=== PATIENT | male | born 1975 | race Caucasian/White ===

== ENCOUNTER 2016-11-06 22:04 | Emergency (ER) | payer OTHER ==
[~2016-11-06] VITALS: Ht 170.2 cm; Wt 135.0 kg
[~2016-11-06 22:04] MED LIST: HYDR25TA PO; LISI-660 PO; [UNRECOGNIZED DRUG - REMARK]; [UNRECOGNIZED DRUG - REMARK]
[2016-11-06 22:21] LABS: GLUCOSE,POINT OF CARE 542 MG/DL (70-110)
[2016-11-06 22:29] LABS: BASOPHILS % (AUTO) 1.2 % (0.0-2.0); EOSINOPHILS % (AUTO) 1.2 % (1.0-6.0); HEMATOCRIT 45.6 % (41-53); HEMOGLOBIN 15.4 g/dL (13.5-17.5); LYMPHOCYTES % (AUTO) 38.3 % (22.0-44.0); MEAN CORPUSCULAR HGB CONC 33.8 G/dL (31.0-37.0); MEAN CORPUSCULAR VOLUME 86 fL (80-100); MONOCYTES # (AUTO) 0.3 K/uL (0.1-1.0); MONOCYTES % (AUTO) 6.8 % (2.0-9.0); NEUTROPHILS # (AUTO) 2.7 K/uL (1.8-7.7); NEUTROPHILS % (AUTO) 52.5 % (40.0-70.0); PLATELET COUNT (AUTO) 202 K/uL (150-450); RED BLOOD CELL COUNT(AUTO) 5.31 MIL/uL (4.50-5.90); WHITE BLOOD COUNT (AUTO) 5.1 K/uL (4.5-11.0)
[2016-11-06 22:52] LABS: ALANINE AMINOTRANSFERASE 89 U/L (12-78); ALBUMIN 3.5 g/dL (3.4-5.0); ANION GAP 5 mmol/L (8-16); ASPARTATE AMINOTRANSFERASE 41 U/L (15-37); BILIRUBIN,TOTAL 0.7 mg/dL (0.1-1.0); CALCIUM, TOTAL 8.8 mg/dL (8.8-10.5); CARBON DIOXIDE 29 mmol/L (22-29); CHLORIDE 91 mmol/L (98-107); CREATININE 1.13 mg/dL (0.60-1.30); GLOMERULAR FILTR. RATE CALC > 60 mL/min (>60); POTASSIUM 4.5 mmol/L (3.5-5.1); SODIUM SERUM 125 mmol/L (136-145); UREA NITROGEN, BLOOD 17 mg/dL (7-18)
[2016-11-06] MEDS ORDERED: SODIUM CHLORIDE 0.9% 1,000 ML IV ONE ×2 (23:00→23:15)
[2016-11-06] MEDS ORDERED: INSULIN REGULAR, HUMAN 100 UNITS/ML IVP ONE (23:00)
[2016-11-06 23:20] LABS: APPEARANCE,URINE CLEAR (CLEAR); GLUCOSE, URINE (UA) >=1000 mg/dL (NEGATIVE); KETONES,URINE NEGATIVE (NEGATIVE); LEUKOCYTE ESTERASE ,URINE NEGATIVE (NEGATIVE); OCCULT BLOOD,URINE TRACE (NEGATIVE); PROTEIN,URINE NEGATIVE (NEGATIVE)
[2016-11-06] MEDS ORDERED: DONNATAL/LIDOCAINE/MAALOX 55 ML BOTTLE PO ONE (23:30)
[2016-11-06 23:37] LABS: ADD UA MICROSCOPIC YES
[2016-11-07 00:11] LABS: GLUCOSE,POINT OF CARE 381 MG/DL (70-110)
[2016-11-07 00:52] LABS: GLUCOSE COMMENT 1 Doctor Notified; GLUCOSE,POINT OF CARE 343 MG/DL (70-110)
[2016-11-07] MEDS ORDERED: SODIUM CHLORIDE 0.9% 1,000 ML IV ONE (01:00)
[2016-11-07] MEDS ORDERED: INSULIN REGULAR, HUMAN 100 UNITS/ML IVP ONE (01:15)
[2016-11-07 01:36] LABS: GLUCOSE COMMENT 1 Doctor Notified; GLUCOSE,POINT OF CARE 316 MG/DL (70-110)
[2016-11-07 03:16] LABS: GLUCOSE COMMENT 1 Doctor Notified; GLUCOSE,POINT OF CARE 306 MG/DL (70-110)
[2016-11-07 04:20] VITALS: BP 133/80
== END 2016-11-07 04:20 | disposition home or self-care (01) ==
LOC: EMS 22:05
DX: R73.9 Hyperglycemia, unspecified (principal); I10 Essential (primary) hypertension; E78.00 Pure hypercholesterolemia, unspecified
CPT/HCPCS: 36415; 80053; 81001; 82948; 82962; 84484; 85025; 87086; 96360; 96361; 96374; 96376; 99285; J1815 ×2; J7030 ×2; Z7610

== ENCOUNTER 2017-11-18 11:50 | Emergency (ER) | payer OTHER ==
[~2017-11-18] VITALS: Ht 170.2 cm; Wt 122.7 kg
[2017-11-18] MEDS ORDERED: LISI1TAB9 PO (11:59)
[2017-11-18] MEDS ORDERED: ASPI-556 PO (11:59)
[2017-11-18] MEDS ORDERED: GLIP5 PO (11:59)
[2017-11-18] MEDS ORDERED: SIMV-259 PO (11:59)
[2017-11-18] MEDS ORDERED: METF500T4 PO (11:59)
[2017-11-18 12:03] LABS: GLUCOSE,POINT OF CARE 159 MG/DL (70-110)
[2017-11-18 13:13] VITALS: BP 168/100
== END 2017-11-18 13:24 | disposition home or self-care (01) ==
LOC: EMS 11:51
DX: K64.4 Residual hemorrhoidal skin tags (principal); E11.9 Type 2 diabetes mellitus without complications; E78.00 Pure hypercholesterolemia, unspecified; I10 Essential (primary) hypertension; Z79.84 Long term (current) use of oral hypoglycemic drugs
CPT/HCPCS: 82962; 99283